=== PATIENT | male | born 1990 | race Caucasian/White ===

== ENCOUNTER 2024-01-10 12:17 | Emergency (ER) | payer BC ==
[~2024-01-10] VITALS: Ht 193 cm; Wt 114.5 kg
[~2024-01-10 12:17] MED LIST: AMOXICILLIN 8751 TAB PO; ASPI325T6 PO; COLACE 100100 MG/CAP PO; MIRALAX238G PO; MOBIC15 MG PO; PERCOCET 325 MG1 TA2 PO; PHENERGAN 25 TA25 MG PO; SENOKOT S 50 MG1 TAB PO; ZOFRAN 4MG T4 MG/TAB PO
[2024-01-10 12:27] VITALS: BP 151/103; TEMP 98.1
[2024-01-10 14:33] LABS: BASO % 0.2 % (0.0-2.0); EOS # 0.1 K/mm3 (0.0-0.7); EOS % 0.6 % (0.0-4.0); GRAN # 8.6 K/mm3 (1.4-6.5); GRAN % 76.2 % (42.2-75.2); HEMATOCRIT 47.2 % (42.0-52.0); HEMOGLOBIN 15.8 g/dl (13.5-18.0); LYMPH # 1.6 K/mm3 (1.2-3.4); LYMPH % 13.8 % (20.0-51.0); MEAN CELL VOLUME 89 fl (80.0-100.0); MEAN CORPUSCULAR HEMOGLOBIN 30 pg (27-31); MEAN CORPUSCULAR HGB CONC 34 g/dl (33.0-37.0); MEAN PLATELET VOLUME 10.3 fl (7.4-10.4); MONO % 8.8 % (1.7-9.3); PLATELET COUNT 267 K/mm3 (130-400); REDCELL DISTRIBUTION WIDTH-CV 14.3 % (11.5-14.5)
[2024-01-10 14:49] LABS: ALBUMIN 3.4 g/dL (3.5-5.0); BILIRUBIN,TOTAL 0.7 mg/dL (0.2-1.2); C-REACTIVE PROTEIN 7.03 mg/dL (0.00-0.50); CALCIUM 9.8 mg/dL (8.4-10.2); POTASSIUM 4.3 mEq/L (3.5-4.5); TOTAL PROTEIN 7.4 g/dl (6.2-8.1)
[2024-01-10] MEDS ORDERED: ceFAZolin 1 G in Water For Injection,Sterile 10 ML IV ONE (15:45)
[2024-01-10] MEDS ORDERED: DOXYCYCLINE 10100 MG PO (15:55)
[2024-01-10] MEDS ORDERED: Ondansetron 4 MG/2 ML VIAL IV ONE (16:00)
[2024-01-10] MEDS ORDERED: NS 1,000 ML IV ONE (16:00)
[2024-01-10 16:17] VITALS: PULSE 85
== END 2024-01-10 16:17 | disposition home or self-care (01) ==
LOC: COL.ER 12:17
PROVIDERS: Nurse Practitioner
DX: L03.113 Cellulitis of right upper limb (principal); M65.9 Synovitis and tenosynovitis, unspecified
CPT/HCPCS: J0690